=== PATIENT | female | born 1985 | race Two or more races ===

== ENCOUNTER 2025-01-23 09:45 | Observation (INO) | payer MEDICAID, SELFPAY ==
[2025-01-23 09:49] VITALS: PULSE 87; O2SAT 99
[2025-01-23 09:54] VITALS: PULSE 77; O2SAT 99
[2025-01-23 09:57] VITALS: BP 117/70; PULSE 79; RESP 100; RESP 19; TEMP 36.4; BMI 21.9
[2025-01-23 09:59] VITALS: PULSE 73; O2SAT 100
[2025-01-23 10:04] VITALS: PULSE 76; O2SAT 100
[2025-01-23 10:09] VITALS: PULSE 75; O2SAT 100
== END 2025-01-23 10:35 | disposition home or self-care (01) ==
PROVIDERS: Admitting Provider Obstetrics & Gynecology; Visit Provider Obstetrics & Gynecology
DX: Z34.82 Encounter for supervision of other normal pregnancy, second trimester (principal); Z3A.24 24 weeks gestation of pregnancy
CPT/HCPCS: 59025; 59899